=== PATIENT | male | born 1960 | race Caucasian/White ===

== ENCOUNTER 2019-07-20 09:30 | Day surgery (SDC) | payer OTHER ==
[2019-07-16 14:10] VITALS: BMI 32.5
[2019-07-20 10:50] VITALS: TEMP 97.8
[2019-07-20 11:22] VITALS: BP 132/82; PULSE 78
== END 2019-07-20 11:22 | disposition home or self-care (01) ==
LOC: JASU-ENDO 09:30
PROVIDERS: ATTEND Internal Medicine Gastroenterology
PROC: 0DJD8ZZ Inspection of Lower Intestinal Tract, Via Natural or Artificial Opening Endoscopic (ICD-10-PCS; principal; 2019-07-20 11:00)
DX: Z86.010 Personal history of colon polyps (principal); I10 Essential (primary) hypertension; E11.9 Type 2 diabetes mellitus without complications; K64.8 Other hemorrhoids

== ENCOUNTER 2022-01-05 08:48 | Emergency (ER) | payer OTHER ==
[2022-01-05 09:21] VITALS: BP 163/93; PULSE 103; RESP 16; TEMP 98.3; BMI 31.3
[2022-01-05] MEDS ORDERED: DIPHTH,PERTUSS(ACELL),TET 0.5 ML DISP.SYRIN IM ONE ×2 (10:39→11:30)
== END 2022-01-05 11:45 | disposition home or self-care (01) ==
LOC: JER 08:48 → JERFT 08:48
PROC: 0VQ50ZZ Repair Scrotum, Open Approach (ICD-10-PCS; principal; 2022-01-05)
PROC: 3E0234Z Introduction of Serum, Toxoid and Vaccine into Muscle, Percutaneous Approach (ICD-10-PCS; 2022-01-05)
DX: S31.31XA Laceration without foreign body of scrotum and testes, initial encounter (principal); W26.8XXA Contact with other sharp object(s), not elsewhere classified, initial encounter
CPT/HCPCS: 12002-25; 90471; 90715; 99284-25

== ENCOUNTER 2022-01-19 08:37 | Emergency (ER) | payer OTHER ==
[2022-01-19 08:43] VITALS: BP 126/85; PULSE 98; RESP 18; TEMP 98.3; BMI 31.8
== END 2022-01-19 10:19 | disposition home or self-care (01) ==
LOC: JERFT 08:37
DX: Z48.02 Encounter for removal of sutures (principal)
CPT/HCPCS: 99281-25

== ENCOUNTER 2024-08-19 06:07 | Day surgery (SDC) | payer OTHER ==
[2024-08-09 11:49] VITALS: BMI 30.2
[2024-08-19 08:35] VITALS: TEMP 97.6
[2024-08-19 09:07] VITALS: RESP 18
[2024-08-19 09:09] VITALS: BP 110/65; PULSE 62
== END 2024-08-19 09:20 | disposition home or self-care (01) ==
LOC: JASU-ENDO 06:07
PROVIDERS: ATTEND Internal Medicine Gastroenterology
PROC: 0DBL8ZX Excision of Transverse Colon, Via Natural or Artificial Opening Endoscopic, Diagnostic (ICD-10-PCS; 2024-08-19)
PROC: 0DBN8ZX Excision of Sigmoid Colon, Via Natural or Artificial Opening Endoscopic, Diagnostic (ICD-10-PCS; 2024-08-19)
PROC: 0DBP8ZX Excision of Rectum, Via Natural or Artificial Opening Endoscopic, Diagnostic (ICD-10-PCS; principal; 2024-08-19 08:00)
DX: Z12.11 Encounter for screening for malignant neoplasm of colon (principal); D12.8 Benign neoplasm of rectum; K63.5 Polyp of colon; K64.8 Other hemorrhoids; Z86.0100 Personal history of colon polyps, unspecified; I10 Essential (primary) hypertension; E11.9 Type 2 diabetes mellitus without complications; Z79.85 Long-term (current) use of injectable non-insulin antidiabetic drugs
CPT/HCPCS: 82962; 88305-TC